=== PATIENT | female | born 1955 | race Caucasian/White ===

== ENCOUNTER → 2020-09-25 | Outpatient (CLI) | payer MEDICARE, OTHER | LOC: KOH-I 14:24 | DX: R91.1 Solitary pulmonary nodule (principal); R91.8 Other nonspecific abnormal finding of lung field | CPT/HCPCS: 71250 ==

== ENCOUNTER → 2021-04-13 | Outpatient (CLI) | payer MEDICARE, OTHER | LOC: KOH-I 14:28 | DX: G57.01 Lesion of sciatic nerve, right lower limb (principal); M25.531 Pain in right wrist; M51.36 Other intervertebral disc degeneration, lumbar region; M19.031 Primary osteoarthritis, right wrist | CPT/HCPCS: 72100; 73110 ==

== ENCOUNTER → 2022-04-14 | Outpatient (CLI) | payer MEDICARE, OTHER | LOC: KOH-I 04-08 10:30 | DX: R91.1 Solitary pulmonary nodule (principal); K80.80 Other cholelithiasis without obstruction | CPT/HCPCS: 71250 ==